=== PATIENT | male | born 2000 | race African-American/Black ===

== ENCOUNTER 2023-08-22 16:38 | Inpatient (IN) ==
[2023-08-22 18:36] LABS: ABS Lymphocytes 1.3 10^3/uL (1.0-4.8); ABS Monocytes 0.5 10^3/uL (0.0-1.1); ABS Neutrophils 5.3 10^3/uL (1.5-7.6); ABS Nucleated RBC 0.01 10^3/ul; Eosinophil % 0.4 %; Hematocrit 40.3 % (38-53); Hemoglobin 13.5 g/dL (13.2-16.3); Lymphocyte % 18.8 %; Mean Corpuscular Hemoglobin 27.3 pg (27-33); Mean Corpuscular Hgb Conc 33.4 g/dL (31-36); Mean Platelet Volume 8.8 fL (7.5-11.2); Nucleated Red Blood Cells % 0.1 %/100WBC (0.0-0.8); Platelet Count 223 10^3/uL (150-450); Red Blood Count 4.92 10^6/uL (4.06-5.63); Red Cell Distribution Width 13.5 % (12-17); White Blood Count 7.2 10^3/uL (3.6-10.2)
[2023-08-22 18:36] LABS: Urine Appearance Clear; Urine Bilirubin Negative (Negative); Urine Blood Negative (Negative); Urine Color Light-Yellow; Urine Glucose Negative (Negative); Urine Ketones Negative (Negative); Urine Nitrite Negative (Negative); Urine Protein Negative (Negative); Urine Specific Gravity 1.024 (1.002-1.030); Urine Urobilinogen Negative (Negative); Urine pH 6.5 (5.0-8.0)
[2023-08-22 19:00] LABS: Urine Benzodiazepine Screen None Detected (None Detect); Urine Cannabinoids Screen Presumptive Positive (None Detect); Urine Opiates Screen None Detected (None Detect)
[2023-08-22 19:18] LABS: ALT 10 U/L (7-52); AST 11 U/L (13-39); Acetaminophen < 15 mcg/mL; Alcohol, S < 13 mg/dL (<13); Alkaline Phosphatase 51 U/L (35-149); Anion Gap 5 mmol/L (2-16); Blood Urea Nitrogen 16 mg/dL (6-24); CO2 Carbon Dioxide 28 mmol/L (22-32); Chloride 104 mmol/L (101-111); Creatinine, Serum 0.84 mg/dL (0.67-1.17); Globulin 2.5 g/dL (2-4); Glucose 92 mg/dL (70-100); Potassium 4.3 mmol/L (3.5-5.0); Salicylate < 2.50 mg/dL (<30); Sodium 137 mmol/L (135-145); Total Bilirubin 0.4 mg/dL (0.2-1.0); Total Protein 7.5 g/dL (6.4-8.9); eGFR CKD-EPI 124.9 (>60)
[2023-08-22 19:33] LABS: TSH Ultra Thyroid Stim Horm 1.07 mcIU/mL (0.34-5.60)
[2023-08-23] MEDS ORDERED: Al Hydrox/Mg Hydrox/Simet LIQ 30 ML UDC PO PRN (09:55)
[2023-08-23] MEDS ORDERED: Lorazepam PYXIS KEY PRN (12:23)
[2023-08-23] MEDS: Haloperidol 5 mg/ml SDV IV/IM 5 MG/ML AMP IM ONE (12:29)
[2023-08-23] MEDS: LORazepam 2 mg VIAL 1 ml IM ONE (12:29)
[2023-08-24 09:00] LABS: HDL Cholesterol 50.7 mg/dL
[2023-08-24] MEDS: Vitamin THERAPEUTIC TAB PO SCH (09:55)
[2023-08-25] MEDS: Haloperidol 5 mg/ml SDV IV/IM 5 MG/ML AMP ONE (18:28)
[2023-08-25] MEDS: LORazepam 2 mg VIAL 1 ml ONE (18:28)
[2023-08-25] MEDS: Haloperidol 5 mg/ml SDV IV/IM 5 MG/ML AMP IM ONE (19:07)
[2023-08-25] MEDS: LORazepam 2 mg VIAL 1 ml IM ONE (19:07)
[2023-08-29] MEDS: Nicotine GUM 4MG FRUIT FLAVOR PO PRN (22:09)
[2023-09-21] MEDS: Vitamin THERAPEUTIC TAB PO SCH (19:56)
[2023-09-25] MEDS: Lithium Carbonate ER 450mg TAB PO SCH (19:50)
[2023-09-27 10:12] VITALS: BP 132/67
== END 2023-09-28 09:35 | DRG 750 ==
LOC: ED 16:38 → EDHOLD 08-23 09:55 → BSU 08-23 11:30
PROVIDERS: ADMIT Student in an Organized Health Care Education/Training Program; ATTEND Student in an Organized Health Care Education/Training Program